=== PATIENT | male | born 1930 | race Caucasian/White ===

== ENCOUNTER 2017-05-17 14:26 | Inpatient (IN) | payer OTHER ==
[~2017-05-17] VITALS: Ht 175.3 cm; Wt 85.4 kg
[~2017-05-17 14:26] MED LIST: ADVAIR HFA120 INHALA IH; ALPRAZOLAM0.5 MG PO; APRESOLINE25 MG PO; ASPIR-LOW81 MG PO; ATORVASTATIN CA40 MG PO; CORDARONE200 MG PO; DUONEB 2.5-0.5 M3 ML AEROSOL; FERROUS SULFAT325 MG PO; FUROSEMIDE40 MG PO; GUAIFENESIN WI120 M1 PO; HUMULIN N100 UNITS/ SC; HYDRALAZINE HCL25 MG PO; ISOSORBIDE DINI30 MG PO; LANTUS 10100 UNITS/ SC; LEVEMIR100 UNIT/2 SC; LEVOFLOXACIN750 MG PO; METOPROLOL SUCC25 MG PO; NOVOLIN N100 UNITS/ SC; OMEPRAZOLE20 MG PO; PERCOCET 5/31 TABLET PO; PLAVIX75 MG PO; PREDNISONE5 MG PO; VITAMIN D250000 UNIT PO; VITAMIN D31000 UNIT PO
[2017-05-17 16:13] LABS: HEMATOCRIT 44.6 % (38.0-50.0); HEMOGLOBIN 14.1 G/DL (12.5-16.6); MCH 28.7 PG (29.0-34.0); MCHC 31.6 G/DL (30.0-36.0); MCV 90.8 FL (86-99); PLATELET COUNT 150 K/uL (156-360); RBC DIS.WIDTH-CV 17.4 % (11.8-14.6); RED BLOOD COUNT 4.91 M/uL (4.00-5.50); WHITE BLOOD COUNT 6.5 K/uL (4.1-10.2)
[2017-05-17 16:30] LABS: CHLORIDE 97 mEq/L (99-109); POTASSIUM 3.7 mEq/L (3.7-5.4); SODIUM 142 mEq/L (136-147)
[2017-05-17 16:31] LABS: GLUCOSE 166 mg/dL (70-99)
[2017-05-17 16:35] LABS: CREATININE 1.8 mg/dL (0.6-1.3); GFR ESTIMATE (CALCULATED) 38 mL/min/ (58.99-99999)
[2017-05-17 16:36] LABS: UREA NITROGEN (BUN) 26 mg/dL (9-23)
[2017-05-17 16:39] LABS: TROP-I INTERPRETATION NEGATIVE; TROPONIN-I 0.06 ng/mL (0.0-0.30)
[2017-05-17 19:33] LABS: APPEARANCE CLEAR ((CLEAR)); BILIRUBIN NEGATIVE; BLOOD NEGATIVE; COLOR YELLOW ((YELLOW)); GLUCOSE (STRIP) 50; KETONES NEGATIVE; LEUKOCYTES NEGATIVE; NITRITE NEGATIVE; PROTEIN (STRIP) 100
[2017-05-17] MEDS ORDERED: DUONEB 2.5-0.5 M3 ML AEROSOL ×2 (19:49)
[2017-05-17] MEDS ORDERED: ADULT ASPIRIN R81 MG PO (19:50)
[2017-05-17 19:52] LABS: BACTERIA NONE SEEN /HPF; EPITHELIAL CELLS NONE SEEN /HPF; MUCUS TRACE /LPF; RED BLOOD CELLS 0-5 /HPF (0-5); WHITE BLOOD CELLS 0-5 /HPF (0-5)
[2017-05-17] MEDS ORDERED: CALCITRIOL0.25 MCG PO (19:53)
[2017-05-17] MEDS ORDERED: IRON325 M1 PO (19:54)
[2017-05-17 20:51] LABS: MAGNESIUM 2.1 mg/dL (1.3-2.7)
[2017-05-17 22:12] VITALS: BP 168/89
[2017-05-17 23:15] LABS: INTER. NORMALIZED RATIO 1.1
[2017-05-18 05:12] VITALS: BP 151/85
[2017-05-18 06:13] LABS: ALBUMIN 3.3 G/DL (3.2-4.8); ALKALINE PHOSPHATASE 83 IU/L (3-129); ALT (GPT) 10 IU/L (3-49); AST (GOT) 15 IU/L (2-34); CHLORIDE 101 MEQ/L (99-109); CREATININE 1.6 MG/DL (0.6-1.3); GFR ESTIMATE (CALCULATED) 44 mL/min/ (58.99-99999); MAGNESIUM 1.9 mg/dl (1.3-2.7); PHOSPHORUS 3.7 mg/dL (2.5-4.9); SODIUM 145 MEQ/L (136-147); TOTAL BILIRUBIN 1.6 MG/DL (0.0-1.0); UREA NITROGEN (BUN) 25 mg/dL (9-23)
[2017-05-18 06:16] LABS: GLUCOSE 100 mg/dL (70-99)
[2017-05-18 07:50] VITALS: BP 160/74
[2017-05-18 11:51] VITALS: BP 164/84
[2017-05-18 15:18] VITALS: BP 167/76
[2017-05-18 19:33] VITALS: BP 159/72
[2017-05-19] VITALS (7 sets, daily range): BP systolic 107–136; BP diastolic 53–69
[2017-05-19 06:21] LABS: BASOPHIL COUNT 0.1 K/uL (0-0.1); EOSINOPHIL (%) 4.2 % (0-5); EOSINOPHIL COUNT 0.2 K/uL (0-0.3); HEMATOCRIT 42.2 % (38.0-50.0); HEMOGLOBIN 13.2 G/DL (12.5-16.6); IMMATURE GRANULOCYTE (%) 0.6 % (0.0-0.7); LYMPHOCYTE (%) 16.4 % (15-42); LYMPHOCYTE COUNT 0.9 K/uL (1.0-2.8); MCH 28.6 PG (29.0-34.0); MCHC 31.3 G/DL (30.0-36.0); MCV 91.3 FL (86-99); MONOCYTE (%) 9.9 % (3-12); MONOCYTE COUNT 0.5 K/uL (0-0.8); NEUTROPHIL (%) 67.9 % (45-76); NEUTROPHIL COUNT 3.6 K/uL (1.8-6.4); PLATELET COUNT 149 K/uL (156-360); RED BLOOD COUNT 4.62 M/uL (4.00-5.50); WHITE BLOOD COUNT 5.2 K/uL (4.1-10.2)
[2017-05-19 06:48] LABS: CHLORIDE 95 MEQ/L (99-109); CREATININE 1.6 MG/DL (0.6-1.3); GFR ESTIMATE (CALCULATED) 44 mL/min/ (58.99-99999); GLUCOSE 189 mg/dL (70-99); POTASSIUM 3.5 MEQ/L (3.7-5.4); SODIUM 140 MEQ/L (136-147); UREA NITROGEN (BUN) 27 mg/dL (9-23)
[2017-05-20 05:39] LABS: BASOPHIL (%) 0.9 % (0-1); BASOPHIL COUNT 0.1 K/uL (0-0.1); EOSINOPHIL (%) 4.1 % (0-5); EOSINOPHIL COUNT 0.3 K/uL (0-0.3); HEMATOCRIT 41.8 % (38.0-50.0); HEMOGLOBIN 13.1 G/DL (12.5-16.6); IMMATURE GRANULOCYTE (%) 0.5 % (0.0-0.7); LYMPHOCYTE (%) 17.6 % (15-42); LYMPHOCYTE COUNT 1.1 K/uL (1.0-2.8); MCH 28.7 PG (29.0-34.0); MCHC 31.3 G/DL (30.0-36.0); MCV 91.7 FL (86-99); MONOCYTE (%) 9.7 % (3-12); MONOCYTE COUNT 0.6 K/uL (0-0.8); NEUTROPHIL (%) 67.2 % (45-76); NEUTROPHIL COUNT 4.3 K/uL (1.8-6.4); PLATELET COUNT 163 K/uL (156-360); RBC DIS.WIDTH-CV 16.7 % (11.8-14.6); RBC DIS.WIDTH-SD 56.3 % (39-53); RED BLOOD COUNT 4.56 M/uL (4.00-5.50); WHITE BLOOD COUNT 6.4 K/uL (4.1-10.2)
[2017-05-20 06:02] LABS: CHLORIDE 96 MEQ/L (99-109); CREATININE 1.7 MG/DL (0.6-1.3); GFR ESTIMATE (CALCULATED) 41 mL/min/ (58.99-99999); GLUCOSE 123 mg/dL (70-99); POTASSIUM 3.8 MEQ/L (3.7-5.4); SODIUM 142 MEQ/L (136-147); UREA NITROGEN (BUN) 26 mg/dL (9-23)
[2017-05-20 08:09] VITALS: BP 122/57
[2017-05-20 11:49] VITALS: BP 119/57
[2017-05-20] MEDS ORDERED: ELIQUIS2.5 MG PO (13:40)
[2017-05-20] MEDS ORDERED: ENTRESTO 24 MG1 EACH PO (15:33)
[2017-05-20 15:59] VITALS: BP 122/59
[2017-05-20 19:56] VITALS: BP 162/74
[2017-05-20 23:59] VITALS: BP 156/73
[2017-05-21 04:59] VITALS: BP 128/65
[2017-05-21 05:06] LABS: HEMATOCRIT 47.4 % (38.0-50.0); HEMOGLOBIN 15.1 G/DL (12.5-16.6); MCH 28.9 PG (29.0-34.0); MCHC 31.9 G/DL (30.0-36.0); MCV 90.6 FL (86-99); PLATELET COUNT 185 K/uL (156-360); RBC DIS.WIDTH-CV 16.8 % (11.8-14.6); RBC DIS.WIDTH-SD 55.8 % (39-53); RED BLOOD COUNT 5.23 M/uL (4.00-5.50); WHITE BLOOD COUNT 6.4 K/uL (4.1-10.2)
[2017-05-21 05:07] LABS: CHLORIDE 94 mEq/L (99-109); SODIUM 140 mEq/L (136-147)
[2017-05-21 05:09] LABS: GLUCOSE 154 mg/dL (70-99)
[2017-05-21 05:13] LABS: CREATININE 1.6 mg/dL (0.6-1.3); GFR ESTIMATE (CALCULATED) 44 mL/min/ (58.99-99999)
[2017-05-21 05:14] LABS: UREA NITROGEN (BUN) 28 mg/dL (9-23)
[2017-05-21 08:49] VITALS: BP 151/76
[2017-05-21] MEDS ORDERED: FUROSEMIDE40 MG PO (11:45)
[2017-05-21] MEDS ORDERED: METOLAZONE2.5 MG PO (11:45)
[2017-05-21 11:59] VITALS: BP 156/79
== END 2017-05-21 14:19 | disposition home health service (06) | DRG 291 ==
LOC: EME 14:26 → 3EAST 20:04 → EDOF 20:04 → ENRESERV 20:13 → 3EAST 22:12
PROVIDERS: Hospitalist; Internal Medicine; Nurse Practitioner Family; Physician Assistant; Physician Assistant Medical
DX: I13.0 Hypertensive heart and chronic kidney disease with heart failure and stage 1 through stage 4 chronic kidney disease, or unspecified chronic kidney disease (principal); I50.23 Acute on chronic systolic (congestive) heart failure; J98.11 Atelectasis; E11.22 Type 2 diabetes mellitus with diabetic chronic kidney disease; N18.3 Chronic kidney disease, stage 3 (moderate); K21.9 Gastro-esophageal reflux disease without esophagitis; E78.5 Hyperlipidemia, unspecified; E78.00 Pure hypercholesterolemia, unspecified; E87.6 Hypokalemia; I25.10 Atherosclerotic heart disease of native coronary artery without angina pectoris; I25.2 Old myocardial infarction; I48.91 Unspecified atrial fibrillation; I25.5 Ischemic cardiomyopathy; Z87.891 Personal history of nicotine dependence; R13.10 Dysphagia, unspecified; J61 Pneumoconiosis due to asbestos and other mineral fibers; E11.319 Type 2 diabetes mellitus with unspecified diabetic retinopathy without macular edema; Z79.4 Long term (current) use of insulin; D63.8 Anemia in other chronic diseases classified elsewhere; Z95.5 Presence of coronary angioplasty implant and graft; I08.0 Rheumatic disorders of both mitral and aortic valves; I27.20 Pulmonary hypertension, unspecified; Z87.01 Personal history of pneumonia (recurrent); Z79.899 Other long term (current) drug therapy; Z79.82 Long term (current) use of aspirin
CPT/HCPCS: 71046; 80048; 80053; 81003; 82948; 83735; 83880; 84100; 84484; 85025; 85027; 85610; 85730; 92610 GN; 93005; 93306; 93970; 94640; 94640 76; 94760; 94799; 99281; 99285; J1815; J1940